=== PATIENT | male | born 1950 | race Caucasian/White ===

== ENCOUNTER 2019-09-16 16:24 | Inpatient (IN) | payer OTHER ==
[~2019-09-16] VITALS: Ht 210.8 cm; Wt 72.3 kg
[2019-09-16 16:51] LABS: Basophils # (auto) 0 10 ^3/uL (0-0.2); Basophils % (auto) 0.5 % (0.0-2.0); Eosinophils # (auto) 0.1 10 ^3/uL (0-0.8); Eosinophils % (auto) 0.8 % (0.0-7.0); Hematocrit 45.6 % (41.0-53.0); Hemoglobin 15.1 g/dL (13.5-17.5); Lymphocytes # (auto) 3.9 10 ^3/uL (0.4-5.4); Lymphocytes % (auto) 39.8 % (10.0-50.0); Mean Corpuscular Hemoglobin 31.3 pg (28.0-32.0); Mean Corpuscular Hgb Conc. 33.1 g/dL (32.0-36.0); Mean Corpuscular Volume 94.4 fL (80.0-100.0); Monocytes # (auto) 1.1 10 ^3/uL (0-1.3); Monocytes % (auto) 10.9 % (0.0-12.0); Neutrophils # (auto) 4.7 10 ^3/uL (1.6-8.6); Nucleated Red Blood Cells % 0.1 %; Platelet Count (auto) 259 10^3/uL (140-450); Red Blood Cells 4.83 10^6/uL (4.5-5.90); Red Cell Distribution Width 14.1 % (11.8-14.3); White Blood Cell 9.8 10^3/uL (4.4-10.8)
[2019-09-16 17:06] LABS: Albumin 3.9 g/dL (3.4-5.0); Anion Gap 7 (5-15); Blood Urea Nitrogen 21 mg/dL (7-18); Carbon Dioxide 26 mmol/L (21-32); Chloride 108 mmol/L (98-107); Glucose 169 mg/dL (74-106); Magnesium 2.5 mg/dL (1.6-2.6); Potassium 3.8 mmol/L (3.5-5.1); Sodium 141 mmol/L (136-145)
[2019-09-16 17:12] LABS: Alanine Aminotransferase 41 U/L (16-61); Alkaline Phosphatase 116 U/L (45-117); Aspartate Aminotransferase 26 U/L (15-37); BUN/Creatinine Ratio 19.6; Bilirubin, Total 0.9 mg/dL (0.2-1.0); GFR African American 88 mL/min; GFR Non-African American 73 mL/min; Total Protein 7.5 g/dL (6.4-8.2)
[2019-09-16 17:32] LABS: INR 1.01 (0.9-1.15); Partial Thromboplastin Time 22.1 sec (23.64-32.05)
--- NOTE | 2019-09-16 20:39 | NUR ---
Opening note Telemetry admit from ER MICHELLE PUTNAM admitted to Telemetry unit after SBAR received. Patient oriented to SIMON BILLINGSLEY, RN primary RN, unit, room, bed, and unit policies regarding patient care and visiting hours. Patient now on continuous telemetry monitoring, tele box 79 and telemetry reading on arrival to unit is HR 62. Patient placed on bedside oxygen, Patient is on Heparin drip 8.5 mls an hour. weighed by bedscale and encouraged to call if they need something. All questions and concerns addressed, patient verbalized understanding.
[2019-09-16] MEDS ORDERED: MORPHINE SULF INJ 2 MG/ML SYRINGE 1ML IV PRN (21:00)
[2019-09-16] MEDS ORDERED: ATORVASTATIN 20 MG TAB PO ONE (21:00)
[2019-09-16] MEDS ORDERED: ASPirin 81 mg TAB PO ONE (21:00)
[2019-09-16] MEDS ORDERED: ONDANSETRON HCL 4 MG/2 ML VIAL IV PRN (21:00)
[2019-09-16] MEDS ORDERED: NITROGLYCERIN 0.4 MG SL TAB SL PRN (21:00)
[2019-09-16] MEDS ORDERED: hydrALAZINE HCL 20 MG/ML VL IV PRN (21:00)
[2019-09-16] MEDS ORDERED: ENOXAPARIN SOD 80 MG/0.8ML SYRINGE SC ONE (21:00)
[2019-09-16] MEDS ORDERED: HEPARIN DRIP/D5W 100UNITS/ML 250 ML IV SCH (21:22)
[2019-09-16] MEDS ORDERED: HEPARIN SODIUM (PORCINE) 5000 UNITS/ML 1ML VIAL IV ONE ×2 (21:30→21:45)
[2019-09-16] MEDS: SODIUM CHLORIDE 0.9% 1,000 ML IV SCH (21:58)
[2019-09-16] MEDS ORDERED: TEMAZEPAM 15 MG CAP PO PRN (22:00)
[2019-09-16] MEDS ORDERED: FAMOTIDINE 20 MG TAB PO SCH (22:00)
[2019-09-16 22:43] LABS: Basophils # (auto) 0.1 10 ^3/uL (0-0.2); Basophils % (auto) 0.8 % (0.0-2.0); Eosinophils # (auto) 0 10 ^3/uL (0-0.8); Eosinophils % (auto) 0.1 % (0.0-7.0); Hematocrit 45.5 % (41.0-53.0); Hemoglobin 14.9 g/dL (13.5-17.5); Lymphocytes # (auto) 1.6 10 ^3/uL (0.4-5.4); Lymphocytes % (auto) 13.6 % (10.0-50.0); Mean Corpuscular Hemoglobin 30.6 pg (28.0-32.0); Mean Corpuscular Hgb Conc. 32.7 g/dL (32.0-36.0); Mean Corpuscular Volume 93.3 fL (80.0-100.0); Monocytes # (auto) 0.8 10 ^3/uL (0-1.3); Monocytes % (auto) 7.1 % (0.0-12.0); Neutrophils # (auto) 9.1 10 ^3/uL (1.6-8.6); Neutrophils % (auto) 78.4 % (37.0-80.0); Nucleated Red Blood Cells % 0.1 %; Platelet Count (auto) 263 10^3/uL (140-450); Red Blood Cells 4.87 10^6/uL (4.5-5.90); Red Cell Distribution Width 13.8 % (11.8-14.3); White Blood Cell 11.5 10^3/uL (4.4-10.8)
[2019-09-16 23:13] LABS: INR 1.08 (0.9-1.15)
[2019-09-16 23:14] LABS: Partial Thromboplastin Time 108.4 sec (23.64-32.05)
--- NOTE | 2019-09-16 23:15 | NUR ---
Critical lab values Jay called with Patients critical lab values troponin 16.2. previous troponin was 2.84. APTT 108.[address] Alfred Butt and hospitalist aware of previous lab results. scheduled Left heart cath tomorrow morning and stress test. Patient is on Heparin drip. Per protocol will stop heparin drip for one hour, then restart it and decrease the rate by 3 mls. Patient has no chest pain or SOB at this time. Patient instructed to call if any new symptoms occur. Will continue to monitor.
--- NOTE | 2019-09-16 23:24 | NUR ---
Heparin stopped. Patient has APTT 108.4. Stopped heparin per protocol. Will restart in one hour and lower by heparin protocol.
[2019-09-16 23:45] VITALS: BP 150/78
--- NOTE | 2019-09-16 23:45 | NUR ---
Blood pressure Re took patients blood pressure 150/78. Patient states no pain or sob at this time. Will continue to monitor. Hr 59.
[2019-09-17 00:16] VITALS: BP 168/94
--- NOTE | 2019-09-17 00:24 | NUR ---
Heparin resumed Resumed heparin per protocol. Running rate 5.5mls.
--- NOTE | 2019-09-17 03:30 | NUR ---
Pt resting in bed. Patient resting in bed. Chest evenly rising. No sob or distress noted. Will continue to monitor.
--- NOTE | 2019-09-17 04:22 | NUR ---
Called laboratory Spoke to Kamari from laboratory. Explained patient has a 0415 APTT timed lab draw for a heparin drip. Lab has not drawn it yet. Kamari stated they are at change of shift and they will come up shortly. Will continue to monitor.
--- NOTE | 2019-09-17 04:45 | NUR ---
Lab Spoke to metallurgical laboratory assistant in counts include 234 beds at the [facility]. Patient has timed lab work at 0415. Tech went to draw patient at this time. Will continue to monitor.
[2019-09-17 05:11] VITALS: BP 153/88
--- NOTE | 2019-09-17 05:20 | NUR ---
Spoke to Lab I noticed patients APTT was not pending once slab inspector jayro blood. Spoke to survey technician and she said she did not have labels or an order for APTT. checked order history and stat APTT is scheduled for 414 on 09/16. Marble Mason said she will draw patients blood juanis. Will continue to monitor.
[2019-09-17 05:34] LABS: Basophils # (auto) 0.1 10 ^3/uL (0-0.2); Basophils % (auto) 0.5 % (0.0-2.0); Eosinophils # (auto) 0 10 ^3/uL (0-0.8); Eosinophils % (auto) 0.2 % (0.0-7.0); Hematocrit 47.6 % (41.0-53.0); Hemoglobin 15.3 g/dL (13.5-17.5); Lymphocytes # (auto) 2.3 10 ^3/uL (0.4-5.4); Lymphocytes % (auto) 18.1 % (10.0-50.0); Mean Corpuscular Hemoglobin 31.3 pg (28.0-32.0); Mean Corpuscular Hgb Conc. 32.2 g/dL (32.0-36.0); Monocytes # (auto) 1.3 10 ^3/uL (0-1.3); Monocytes % (auto) 9.9 % (0.0-12.0); Neutrophils # (auto) 9.2 10 ^3/uL (1.6-8.6); Neutrophils % (auto) 71.3 % (37.0-80.0); Nucleated Red Blood Cells % 0.1 %; Platelet Count (auto) 127 10^3/uL (140-450); Red Blood Cells 4.91 10^6/uL (4.5-5.90); Red Cell Distribution Width 14.7 % (11.8-14.3); White Blood Cell 12.8 10^3/uL (4.4-10.8)
[2019-09-17 05:39] LABS: Calcium 8.6 mg/dL (8.5-10.1); Potassium 4.2 mmol/L (3.5-5.1)
[2019-09-17 05:58] LABS: BUN/Creatinine Ratio 19.4
--- NOTE | 2019-09-17 06:25 | NUR ---
Critical lab Patient has critical lab value troponin. MD are aware. Patient is on Heparin and scheduled for a left heart catheter with Alfred Butt this morning at 0730. Will continue to monitor.
--- NOTE | 2019-09-17 06:36 | NUR ---
Patient status Patient has no chest pain or SOB. patient is resting in bed no signs of distress noted.
[2019-09-17 06:37] LABS: INR 1.04 (0.9-1.15)
--- NOTE | 2019-09-17 06:40 | NUR ---
Heparin APTT 33. Followed protocol and gave bolus and increased to 8.5 mls. Will continue to monitor
--- NOTE | 2019-09-17 07:30 | NUR ---
Patient at [employer] Patient is at [employer]. No sob or distress noted. patient states he has no chest pain. Will let Day shift RN know.
[2019-09-17] MEDS ORDERED: IODIXANOL 320MG/ML 100ML BTL IV ONE (07:36)
[2019-09-17] MEDS ORDERED: LIDOCAINE 2%HCL (LOCAL ANESTH.) INJ 20ML MDV ONE (07:36)
--- NOTE | 2019-09-17 07:45 | NUR ---
Closing note Endorsed care to day shift RN.
--- NOTE | 2019-09-17 08:00 | NUR ---
SPOKE TO PT'S FAMILY MEMBER. PASSWORD VERIFIED. STATUS UPDATE GIVEN. WILL CALL BACK AROUND NOON FOR AN UPDATE POST HEART CATH.
[2019-09-17] MEDS ORDERED: fentaNYL CITRATE 100 MCG/2 ML VL ONE (08:07)
[2019-09-17] MEDS ORDERED: MIDAZOLAM HCL 1MG/1ML-2 ML VIAL ONE (08:07)
[2019-09-17] MEDS ORDERED: HEPARIN SODIUM (PORCINE) 5000 UNITS/ML 1ML VIAL ONE (08:37)
[2019-09-17] MEDS ORDERED: TICAGRELOR 90 MG TAB ONE (09:38)
[2019-09-17] MEDS ORDERED: ONDANSETRON HCL 4 MG/2 ML VIAL IV PRN (10:15)
[2019-09-17] MEDS ORDERED: MORPHINE SULFATE 4 MG/ML SYR/VIAL IV PRN (10:15)
[2019-09-17] MEDS ORDERED: HYDROcodone-ACET 5/325MG TAB PO PRN (10:15)
--- NOTE | 2019-09-17 10:25 | NUR ---
REPORT RECEIVED FROM MAE OSULLIVAN.
[2019-09-17] MEDS ORDERED: PANTOPRAZOLE 40 MG/10 ML VIAL INJ IV ONE (10:30)
[2019-09-17] MEDS ORDERED: METOPROLOL TARTRATE 25 MG TAB PO ONE (10:30)
[2019-09-17] MEDS ORDERED: TICAGRELOR 90 MG TAB PO ONE (10:30)
[2019-09-17] MEDS ORDERED: ASPirin 81 mg TAB PO ONE (10:30)
[2019-09-17 11:00] VITALS: BP 143/88
[2019-09-17] MEDS: SODIUM CHLORIDE 0.9% 1,000 ML IV SCH ×2 (11:30→22:10)
[2019-09-17 12:33] LABS: INR 1.04 (0.9-1.15)
[2019-09-17 12:41] LABS: Partial Thromboplastin Time 107.3 sec (23.64-32.05)
--- NOTE | 2019-09-17 13:17 | NUR ---
1300 09/17/19 - Contacted [facility] at [phone], requesting authorization for continued inpatient stay. Spoke with all source analyst Avis who stated that there are no beds available for any transfers. Avis did confirm receipt of faxed clinical notes. She also provided authorization [id number] for continued inpatient stay.
--- NOTE | 2019-09-17 14:15 | NUR ---
PT NOTES PT AWAKE, HOB ELEVATED. PT IS AWARE OF BEDREST ORDER FOR 6 HRS POST HEART CATH, ENDING AT 5PM. NO DISTRESS NOTED. SMALL AMOUNT OF BLEEDING NOTED ON THE RIGHT GROIN DRESSING, MARKED. WILL KEEP MONITORING FOR BLEEDING ON SITE.
[2019-09-17 17:00] VITALS: BP 128/75
--- NOTE | 2019-09-17 20:00 | NUR ---
Opening Shift Note Assumed care of patient, awake and alert. No S/S of distress/SOB or pain noted. Instructed on POC and to call for assist PRN. Bed locked in lowest position with two side rails up and call light in reach. Dressing circled dated and time on right groin with minimal red drainage noted.
[2019-09-17 21:38] VITALS: BP 134/80
[2019-09-17] MEDS ORDERED: PANTOPRAZOLE 40 MG/10 ML VIAL INJ IV SCH (22:00)
[2019-09-17] MEDS: METOPROLOL TARTRATE 25 MG TAB PO SCH (22:02)
[2019-09-17] MEDS: TICAGRELOR 90 MG TAB PO SCH (22:02)
[2019-09-17] MEDS: ATORVASTATIN 20 MG TAB PO SCH (22:02)
[2019-09-18 05:27] VITALS: BP 103/72
[2019-09-18 05:50] LABS: Basophils # (auto) 0 10 ^3/uL (0-0.2); Basophils % (auto) 0.3 % (0.0-2.0); Eosinophils # (auto) 0 10 ^3/uL (0-0.8); Lymphocytes # (auto) 1.8 10 ^3/uL (0.4-5.4); Lymphocytes % (auto) 17.9 % (10.0-50.0); Mean Corpuscular Hemoglobin 31.2 pg (28.0-32.0); Mean Corpuscular Hgb Conc. 33.4 g/dL (32.0-36.0); Mean Corpuscular Volume 93.5 fL (80.0-100.0); Monocytes # (auto) 1.4 10 ^3/uL (0-1.3); Monocytes % (auto) 13.3 % (0.0-12.0); Neutrophils # (auto) 7.1 10 ^3/uL (1.6-8.6); Neutrophils % (auto) 68.5 % (37.0-80.0); Platelet Count (auto) 235 10^3/uL (140-450); Red Blood Cells 4.49 10^6/uL (4.5-5.90); Red Cell Distribution Width 14.1 % (11.8-14.3); White Blood Cell 10.3 10^3/uL (4.4-10.8)
[2019-09-18 06:13] LABS: Potassium 4.2 mmol/L (3.5-5.1)
[2019-09-18 06:17] LABS: BUN/Creatinine Ratio 21.1; Calcium 8.6 mg/dL (8.5-10.1)
--- NOTE | 2019-09-18 07:38 | NUR ---
PT BROUGHT DOWN TO UNIVERSITY RELATIONS DIRECTOR FOR PROCEDURE NO DISTESS NOTED AT TIME OF DEPARTURE.
[2019-09-18] MEDS ORDERED: fentaNYL CITRATE 100 MCG/2 ML VL ONE (07:55)
[2019-09-18] MEDS ORDERED: ANGIOMAX 250 MG VIAL IV ONE (07:55)
[2019-09-18] MEDS ORDERED: HEPARIN IN NS 1000Units/500mL 1,500 ML ONE (07:56)
[2019-09-18] MEDS ORDERED: MIDAZOLAM HCL 1MG/1ML-2 ML VIAL ONE (07:56)
[2019-09-18] MEDS ORDERED: SODIUM CHL 0.9% 50 ML ONE (07:56)
[2019-09-18] MEDS ORDERED: IOHEXOL 350 MG/ML 100ML IJ ONE ×3 (07:56→08:51)
[2019-09-18] MEDS ORDERED: LIDOCAINE 2%HCL (LOCAL ANESTH.) INJ 20ML MDV ONE (07:56)
[2019-09-18] MEDS ORDERED: TICAGRELOR 90 MG TAB ONE (08:54)
[2019-09-18] MEDS: TICAGRELOR 90 MG TAB PO SCH ×2 (09:19→21:23)
--- NOTE | 2019-09-18 09:57 | NUR ---
Report received from . MICHELLE PUTNAM brought to bed 273B following LEFT Cardiac catheterization, on stamping die maker bench and portable oxygen. Patient transfered to unit bed, connected to door serviceman #[id number] and oxygen. Catheterization site assessed for any bleeding, redness or swelling. ANGIOSEAL device in place. Pedal pulses on affected leg assessed for positive tissue perfusion. Patient instructed on need to notify staff immediately if any pain, burning or wetness to site, and any lower back pain. Patient educated on new cardiac medications. All questions and concerns addressed, patient verbalized understanding of all education and instruction. See notes for any further.
[2019-09-18] MEDS: ASPirin 81 mg TAB PO SCH (10:00)
[2019-09-18] MEDS: METOPROLOL TARTRATE 25 MG TAB PO SCH ×2 (10:00→21:25)
[2019-09-18] MEDS: PANTOPRAZOLE 40 MG/10 ML VIAL INJ IV SCH (10:00)
[2019-09-18] MEDS: SODIUM CHLORIDE 0.9% 1,000 ML IV SCH (10:16)
--- NOTE | 2019-09-18 10:45 | NUR ---
POST ANGIO ASSESSMENT UPON ASSESSMENT DRESSING APPEARS TO HAVE BLOODY DRAINAGE. DRAINAGE CIRCLED. NO ECCHYMOSIS NOTED. NO HEMATOMA NOTED WITH PALPATION. WILL CONTINUE TO MONITOR
--- NOTE | 2019-09-18 11:00 | NUR ---
GROIN ASSESSMENT DRAINAGE HAS MIGRATED FROM OUTLINE. PRESSURE APPLIED WITH 5LB SANDBAG. WILL CONTINUE TO MONITOR. NO ECCHYMOSIS OR HEMATOMA NOTED UPON ASSESSMENT
--- NOTE | 2019-09-18 11:30 | NUR ---
GROIN ASSESSMENT DRAINAGE HAS MIGRATED FROM OUTLINE. PRESSURE APPLIED WITH 5LB SANDBAG AND ICE. WILL CONTINUE TO MONITOR. NO ECCHYMOSIS OR HEMATOMA NOTED UPON ASSESSMENT
--- NOTE | 2019-09-18 12:00 | NUR ---
GROIN ASSESSMENT DRAINAGE ENCIRCLED GUAZE. PRESSURE APPLIED WITH 5LB SANDBAG AND ICE. WILL CONTINUE TO MONITOR. NO ECCHYMOSIS OR HEMATOMA NOTED UPON ASSESSMENT. WORKSITE WELLNESS PRACTITIONER NOTIFIED . PER CARMELA JAQUEZ SHE WILL COME UP TO ASSESS PATIENT
--- NOTE | 2019-09-18 13:00 | NUR ---
PET AMBASSADOR PERSONNEL МАРИНА RN AT [facility] RN ASSESSING ACCESS SITE. PER RN THE SITE LOOKS GOOD AND THE BLEEDING IS NOT ARTERIAL. DRESSING CHANGED AND MANUAL PRESSURE APPLIED
[2019-09-18 14:24] VITALS: BP 122/70
[2019-09-18 16:49] VITALS: BP 111/76
--- NOTE | 2019-09-18 19:45 | NUR ---
Opening Shift Note Assumed care of patient, awake and alert. No S/S of distress/SOB noted. Instructed on POC and to call for assist PRN, and patient verbalized understanding. Bed is in lowest locked position with bed rails up x2 and call light is within reach of the patient.
[2019-09-18] MEDS: ATORVASTATIN 20 MG TAB PO SCH (21:26)
[2019-09-18 22:00] VITALS: BP 107/69
[2019-09-19] MEDS: SODIUM CHLORIDE 0.9% 1,000 ML IV SCH ×2 (01:55→12:30)
--- NOTE | 2019-09-19 04:34 | NUR ---
Report given and care endorsed to Hannah JAQUEZ.
[2019-09-19 05:00] VITALS: BP 93/67
[2019-09-19 05:59] LABS: Basophils # (auto) 0 10 ^3/uL (0-0.2); Basophils % (auto) 0.5 % (0.0-2.0); Eosinophils # (auto) 0 10 ^3/uL (0-0.8); Eosinophils % (auto) 0.3 % (0.0-7.0); Hematocrit 41.3 % (41.0-53.0); Hemoglobin 13.8 g/dL (13.5-17.5); Lymphocytes # (auto) 1.9 10 ^3/uL (0.4-5.4); Lymphocytes % (auto) 22.1 % (10.0-50.0); Mean Corpuscular Hemoglobin 31.4 pg (28.0-32.0); Mean Corpuscular Hgb Conc. 33.5 g/dL (32.0-36.0); Mean Corpuscular Volume 93.6 fL (80.0-100.0); Monocytes # (auto) 1.1 10 ^3/uL (0-1.3); Monocytes % (auto) 12.3 % (0.0-12.0); Neutrophils # (auto) 5.6 10 ^3/uL (1.6-8.6); Neutrophils % (auto) 64.8 % (37.0-80.0); Platelet Count (auto) 220 10^3/uL (140-450); Red Blood Cells 4.42 10^6/uL (4.5-5.90); Red Cell Distribution Width 13.8 % (11.8-14.3); White Blood Cell 8.6 10^3/uL (4.4-10.8)
[2019-09-19 06:25] LABS: Calcium 8.8 mg/dL (8.5-10.1); Potassium 3.9 mmol/L (3.5-5.1)
[2019-09-19 06:27] LABS: BUN/Creatinine Ratio 24.7
--- NOTE | 2019-09-19 07:42 | NUR ---
1510 09/18/19 - Contacted [facility] at [phone] requesting authorization for continued inpatient stay. Spoke with behavior analyst Brayan who stated authorization [id number] had been extended for continued inpatient stay.
[2019-09-19 08:00] VITALS: BP 107/61
[2019-09-19 09:00] VITALS: BP 107/61
[2019-09-19] MEDS: METOPROLOL TARTRATE 25 MG TAB PO SCH (09:58)
[2019-09-19] MEDS: PANTOPRAZOLE 40 MG/10 ML VIAL INJ IV SCH (10:06)
[2019-09-19] MEDS: TICAGRELOR 90 MG TAB PO SCH (10:07)
[2019-09-19] MEDS: ASPirin 81 mg TAB PO SCH (10:07)
[2019-09-19] MEDS ORDERED: CLOPIDOGREL 300 MG TAB PO ONE (11:30)
[2019-09-19 13:02] VITALS: BP 109/74
--- NOTE | 2019-09-19 14:10 | NUR ---
PATIENT DISCHARGED HOME WITH FAMILY. ALL IV ACCESS DISCONTINUED. TELEMETRY BOX REMOVED AND RETURNED TO TELEMETRY DEPARTMENT. ALL DISCHARGE INSTRUCTIONS GIVEN. ALL DISCHARGE PAPERWORK SIGNED
== END 2019-09-19 14:00 | disposition home or self-care (01) | DRG 246 ==
LOC: EDBD 16:24 → ER 16:24 → TELE 16:25 → TELE-WESTW 22:40
PROVIDERS: ADMIT Nurse Practitioner; ATTEND Internal Medicine
PROC: 027135Z Dilation of Coronary Artery, Two Arteries with Two Drug-eluting Intraluminal Devices, Percutaneous Approach (ICD-10-PCS; principal; 2019-09-17)
PROC: 02C13ZZ Extirpation of Matter from Coronary Artery, Two Arteries, Percutaneous Approach (ICD-10-PCS; 2019-09-17)
PROC: 4A023N7 Measurement of Cardiac Sampling and Pressure, Left Heart, Percutaneous Approach (ICD-10-PCS; 2019-09-17)
PROC: B2111ZZ Fluoroscopy of Multiple Coronary Arteries using Low Osmolar Contrast (ICD-10-PCS; 2019-09-17)
PROC: B2151ZZ Fluoroscopy of Left Heart using Low Osmolar Contrast (ICD-10-PCS; 2019-09-17)
PROC: B241ZZ3 Ultrasonography of Multiple Coronary Arteries, Intravascular (ICD-10-PCS; 2019-09-17)
PROC: B41F1ZZ Fluoroscopy of Right Lower Extremity Arteries using Low Osmolar Contrast (ICD-10-PCS; 2019-09-17)
PROC: 02C23ZZ Extirpation of Matter from Coronary Artery, Three Arteries, Percutaneous Approach (ICD-10-PCS; 2019-09-18)
PROC: 027135Z Dilation of Coronary Artery, Two Arteries with Two Drug-eluting Intraluminal Devices, Percutaneous Approach (ICD-10-PCS; 2019-09-18)
PROC: B2101ZZ Fluoroscopy of Single Coronary Artery using Low Osmolar Contrast (ICD-10-PCS; 2019-09-18)
PROC: B41G1ZZ Fluoroscopy of Left Lower Extremity Arteries using Low Osmolar Contrast (ICD-10-PCS; 2019-09-18)
DX: I21.9 Acute myocardial infarction, unspecified (principal); E87.8 Other disorders of electrolyte and fluid balance, not elsewhere classified; I10 Essential (primary) hypertension; R00.1 Bradycardia, unspecified; E78.5 Hyperlipidemia, unspecified; Z79.02 Long term (current) use of antithrombotics/antiplatelets; Z79.82 Long term (current) use of aspirin; Z79.899 Other long term (current) drug therapy; Z80.9 Family history of malignant neoplasm, unspecified; Z83.3 Family history of diabetes mellitus; Z90.49 Acquired absence of other specified parts of digestive tract
CPT/HCPCS: 36415; 71045; 75710; 80048; 80053; 83735; 84484; 85025; 85610; 85730; 86850; 86900; 86901; 92925; 92933; 92978; 92979; 93005; 93306; 93458; 96365; 96366; 99152; 99153; C1874; C9113; G0378; J2250; Q9967